=== PATIENT | female | born 1935 | race Caucasian/White ===

== ENCOUNTER 2018-04-02 15:46 | Emergency (ER) | payer MEDICARE, BC ==
--- OUTSIDE RECORDS SUMMARY | 2018-04-02 16:02 | XMS REPORT | Continuity of Care Document ---
:1935 External Reference #:[id number] Demographics Address [address] [place] [address] Home Phone [phone] Mobile Phone [phone] Preferred Language en Marital Status Not or Baptist Affiliation Unknown Race White Ethnic Group Not or Author Name Tonya Pettit Care Team Providers Name Role Phone Emiliano Andrew MD Care Team Information Loan Servicing Officer Unavailable Emiliano Andrew MD Primary Care Physician Unavailable Payers Type Date Identification Numbers Payment Provider Subscriber Policy Number: [id number] Medicare Melanie Mendez PayID: [id number] [address] [place] [address] Effective: 2012 Policy Number: [id number] [facility] Melanie Mendez Group Number: [id number] [address] [address] PayID: [id number] [place] [id number] Advance Directives Description No Information Available Problems Date Description Provider Status Onset: 11/20/2011 Impacted cerumen Jose Ford M.D. Active Onset: 11/20/2011 Deviated nasal septum Jose Ford M.D. Active Onset: 11/20/2011 Disorder of thyroid gland Jose Ford M.D. Active Family History Date Family Member(s) Problem(s) Comments General Diabetes Social History Type Date Description Comments Sex Unknown Tobacco Use Start: Unknown End: Unknown Former Cigarette Smoker ETOH Use Occasionally consumes alcohol Allergies, Adverse Reactions, Alerts Date Description Reaction Status Severity Comments 09/30/2008 Penicillins THROAT SWELLS Active 09/30/2008 Tetracycline THRUSH Active Medications Medication Date Status Form Strength Qnty SIG Indications Ordering Provider Fluticasone 11/20/ Active Suspension 50mcg/Act 3units 2 sprays Milton Ford 2011 both nakul Garcia M.D. every day Calcium & D 08/09/ Active Tablets Fadumo Ford M.D. Paxil / Active Tablets 20mg 1 tablet Unknown 0000 po prn Coumadin / Active Unknown 0000 Metoprolol / Active Tablets bid Unknown Tartrate 0000 Pantoprazole 00/00/ Active Tablets DR 40mg 30tabs 1 by Unknown Sodium 0000 mouth every day Calcitonin 00/00/ Active 200Units daily Unknown [place] 0000 Sucralfate 0000/ Active Tablets 1gm 1 by Unknown 0000 mouth three times daily Magnesium / Active Tablets 400mg twice a Unknown Oxide 0000 day Proventil HFA / Active Aerosol 108(90Base 2 unit by Unknown 0000 ) mcg/Act mouth every 4 hours as needed Mupirocin 05/14/ Hx Ointment 2% 1units apply Logan, 2016 - around Jose, 03/17/ the nose M.D. 2017 twice daily 2 weeks Fluocinolone 11/17/ Hx Oil 0.01% 3units 3-5 drops Ron Fordonide 2016 - twice Jose, 03/17/ daily or M.D. 2017 as needed affcted ear Prednisone 11/11/ Hx Tablets 10mg 3tabs 1 by Logan, 2015 - mouth Jose, 05/14/ every M.D. 2015 morning Fluocinolone 02/22/ Hx Oil 0.01% 3units 3-5 drops Ron Fordonide 2014 - twice Jose, 05/14/ daily or M.D. 2015 as needed affcted ear Singulair 09/26/ Hx Tablets 10mg 90tabs 1 po qd Logan, 2010 - Jose, 04/13/ M.D. 2013 Omnaris 10/12/ Hx Suspension 50mcg/Act 3units 2 sprays Logan, 2009 - both Jose, 11/17/ nostrils M.D. 2013 qd Vytorin / Hx Tablets 10-20mg Unknown - 2013 Prevacid /00/ Hx Capsules DR 30mg 30caps 1 po qd Unknown - 2013 Miacalcin 00/00/ Hx Unknown 0000 - 2009 Collette 00/00/ Hx Unknown - 2009 Collette-D 24 00/00/ Hx Tablets ER 180-240mg qday Unknown Hour 0000 - 24HR 2013 Iron 00/00/ Hx Tablets Unknown 0000 - 2013 Vitamin C 00/00/ Hx Tablets Unknown - 2013 Eye gtts // Hx instills Unknown 0000 - at hs 2013 Immunizations Description No Information Available Vital Signs Date Vital Result Comment 03/18/2018 1:40pm Weight 144.00 lb Height 64.5 inches 5'4.50" BMI (Body Mass Index) 24.3 kg/m2 BP Systolic 146 mmHg BP Diastolic 81 mmHg Heart Rate 64 /min O2 % BldC Oximetry 96 % Body Temperature 98.2 F Pain Level 0 10/18/2017 2:17pm Height 64.5 inches 5'4.50" BP Systolic 153 mmHg BP Diastolic 73 mmHg Heart Rate 72 /min O2 % BldC Oximetry 96 % Body Temperature 98.3 F Pain Level 4 10/17/2017 1:37pm Weight 151.00 lb Height 64.5 inches 5'4.50" BMI (Body Mass Index) 25.5 kg/m2 BP Systolic 144 mmHg BP Diastolic 84 mmHg Heart Rate 76 /min O2 % BldC Oximetry 97 % Body Temperature 98.2 F Pain Level 0 11/13/2016 11:42am Weight 151.00 lb Height 64.5 inches 5'4.50" BMI (Body Mass Index) 25.5 kg/m2 BP Systolic 166 mmHg BP Diastolic 81 mmHg Heart Rate 70 /min O2 % BldC Oximetry 96 % Body Temperature 97.4 F 05/15/2016 11:20am Weight 148.00 lb Height 64.5 inches 5'4.50" BMI (Body Mass Index) 25.0 kg/m2 BP Systolic 116 mmHg BP Diastolic 74 mmHg Heart Rate 74 /min O2 % BldC Oximetry 98 % Body Temperature 97.6 F 11/12/2015 11:36am Weight 150.00 lb Height 64.5 inches 5'4.50" BMI (Body Mass Index) 25.3 kg/m2 02/19/2015 2:03pm Weight 145.00 lb Height 64.5 inches 5'4.50" BMI (Body Mass Index) 24.5 kg/m2 BP Systolic 118 mmHg BP Diastolic 66 mmHg Heart Rate 68 /min O2 % BldC Oximetry 97 % Body Temperature 97.5 F Pain Level 0 04/29/2014 6:20pm Weight 149.00 lb Height 64.5 inches 5'4.50" BMI (Body Mass Index) 25.2 kg/m2 BP Systolic 128 mmHg BP Diastolic 76 mmHg Heart Rate 64 /min O2 % BldC Oximetry 98 % Body Temperature 98.6 F 04/14/2014 8:08am Weight 149.00 lb Height 64.5 inches 5'4.50" BMI (Body Mass Index) 25.2 kg/m2 BP Systolic 130 mmHg BP Diastolic 78 mmHg Heart Rate 66 /min O2 % BldC Oximetry 90 % Body Temperature 97.7 F Pain Level 0 11/17/2013 1:41pm Weight 140.00 lb Height 64.5 inches 5'4.50" BMI (Body Mass Index) 23.7 kg/m2 BP Systolic 112 mmHg BP Diastolic 82 mmHg Heart Rate 64 /min O2 % BldC Oximetry 97 % Body Temperature 99.3 F 11/21/2012 9:53am Weight 137.00 lb Height 64.5 inches 5'4.50" BMI (Body Mass Index) 23.2 kg/m2 BP Systolic 98 mmHg BP Diastolic 70 mmHg Heart Rate 63 /min O2 % BldC Oximetry 97 % Body Temperature 97.9 F 11/20/2011 3:39pm Weight 138.00 lb Height 64.5 inches 5'4.50" BMI (Body Mass Index) 23.3 kg/m2 BP Systolic 134 mmHg BP Diastolic 78 mmHg Heart Rate 81 /min O2 % BldC Oximetry 96 % Body Temperature 96.8 F 01/04/2011 9:28am Weight 137.00 lb Height 64.5 inches 5'4.50" BMI (Body Mass Index) 23.2 kg/m2 BP Systolic 116 mmHg BP Diastolic 82 mmHg Heart Rate 75 /min O2 % BldC Oximetry 96 % Body Temperature 97.1 F 08/09/2010 1:14pm Weight 143.00 lb Height 64.5 inches 5'4.50" BMI (Body Mass Index) 24.2 kg/m2 BP Systolic 130 mmHg BP Diastolic 80 mmHg Body Temperature 97.4 F 10/12/2009 2:56pm Weight 138.00 lb Height 64.5 inches 5'4.50" BMI (Body Mass Index) 23.3 kg/m2 BP Systolic 102 mmHg BP Diastolic 69 mmHg Heart Rate 78 /min Body Temperature 97.6 F 09/30/2008 1:55pm Weight 144.00 lb Height 65 inches 5'5" BMI (Body Mass Index) 24.0 kg/m2 BP Systolic 130 mmHg BP Diastolic 84 mmHg Body Temperature 97.8 F Results Test Date Facility Test Result H/L Range Note Laboratory test 10/17/2008 [facility] Pathology Exam (SEE NOTE) 1 finding [address] [place] [address] [phone] 1 NON-AUTOMOTIVE WINDOW TINTER PREPARATION TECHNIQUES CYTOLOGY NON-AUTOMOTIVE WINDOW TINTER SPECIMEN PREPARATION: CYTOLOGY PREPTECH SPECIMEN PREPARATION: 1 CENTRIFUGE TUBES 1 CYTOBUCKETS 1 CYTOSPIN SLIDE PREPARATIONS 1 THINPREP SLIDE PREPARATIONS 1 SLIDE PREPARATIONS SMEARS RECEIVED IN LAB ALREADY PREPARED: 6 PREPARED SMEARS A TOTAL OF 1 SLIDE PREPARATIONS WERE MADE ON THIS SPECIMEN. CYTOLOGY SCREENER Screened by: LUMA Smith([facility]) FINAL INTERPRETATION "MULTIPLE THYROID NODULES, FINE NEEDLE ASPIRATION BIOPSY": PAUCICELLULAR, HEMORRHAGIC, NONDIAGNOSTIC SPECIMEN (SEE COMMENT). INTERPRETATION COMMENT If the index mass persists or recurs, reaspiration or excisional biopsy with submission for surgical pathology evaluation may be considered. GROSS Received are 2 prepared smears in methanol, 4 stained prepared slides, and a 5ml red-top tube containing of fluid, including Cytospin Fluid; each is appropriately labeled. MH MICROSCOPIC Paucicellular specimen; abundant erythrocytes, dense colloid, foamy hisiocytes and siderophages. No follicular cell component identified. KAILASH Payne MD 10/21/08 Procedures Date Code Description Status 10/17/2017 11304 Ultrasound Head/Neck Completed 05/14/2017 59692 Ultrasound Head/Neck Completed 05/14/2017 94343 Remove Impacted Cerumen Completed 05/14/2017 37969 Fiberoptic Laryngoscopy,Diag. Completed 11/13/2016 69522 Ultrasound Head/Neck Completed 11/13/2016 05999 Remove Impacted Cerumen Completed 05/15/2016 70773 Ultrasound Head/Neck Completed 05/15/2016 27332 Remove Impacted Cerumen Completed 11/12/2015 51590 Fiberoptic Laryngoscopy,Diag. Completed 02/19/2015 73502 Remove Impacted Cerumen Completed 02/19/2015 82723 Ultrasound Head/Neck Completed 04/14/2014 62196 Remove Impacted Cerumen Completed 11/17/2013 69933 Fiberoptic Laryngoscopy,Diag. Completed 11/20/2011 52602 Ultrasound Head/Neck Completed 08/09/2010 91024 Nasal Endoscopy, Diag. Completed 10/12/2009 37674 Ultrasound Head/Neck Completed 10/17/2008 08324 Fna W/Image Completed 09/30/2008 92763 Acoustic Reflex Testing Completed 09/30/2008 10859 Tympanometry Completed 09/30/2008 18104 Audiometry, Comprehensive Completed Encounters Type Date Location Provider Dx Diagnosis Office Visit 10/18/2017 Main Office Jose Ford M.D. H60.92 Unspecified otitis 2:15p externa, left ear Office Visit 10/17/2017 Main Office Jose Ford M.D. K21.9 Gastro- esophageal 1:30p reflux disease without esophagitis E04.2 Nontoxic multinodular goiter H60.92 Unspecified otitis externa, left ear Office Visit 05/14/2017 9:30a Main Office Jose Ford H61.23 Impacted cerumemarylu MBessyDBessy bilateral K21.9 Gastro-esophageal reflux disease without esophagitis E04.2 Nontoxic multinodular goiter J31.0 Chronic rhinitis Office Visit 11/13/2016 11:30a Main Office Jose Ford H61.23 Impacted cerumen, M.DBessy bilateral K21.9 Gastro-esophageal reflux disease without esophagitis E04.2 Nontoxic multinodular goiter Office Visit 05/15/2016 11:15a Main Office Jose Ford H61.23 Impacted cerumen, MBessyDBessy bilateral K21.9 Gastro-esophageal reflux disease without esophagitis E04.2 Nontoxic multinodular goiter Office Visit 11/12/2015 11:30a Main Office Ford, Jose, H61.23 Impacted cergeraldnYudi bilateral K21.9 Gastro-esophageal reflux disease without esophagitis R07.0 Pain in throat E06.9 Thyroiditis, unspecified R49.0 Dysphonia Office Visit 02/19/2015 1:45p Main Office Jose Ford M.D. 380.4 Cerumen Removal 246.9 Thyroid Disorders Unspec 241.1 Goiter Nontoxic Multinodular Office Visit 04/29/2014 6:30p Main Office Jose Ford M.D. 380.4 Cerumen Removal 472.0 Rhinitis Chronic 784.91 Postnasal Drip Office Visit 11/17/2013 10:45a Main Office Jose Ford 246.9 Thyroid Disorders M.D. 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 Unspec 380.4 Cerumen Removal 470 Deviated Nasal Septum Office Visit 01/04/2011 9:15a Main Office Jose Ford M.D. 380.4 Cerumen Removal 470 Deviated Nasal Septum 472.0 Rhinitis Chronic Office Visit 08/23/2010 9:30a Main Office Jose Ford, 473.9 Sinusitis Chronic M.D. 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 Unspec 388.30 Tinnitus Unspecified 389.10 Hearing Loss Sensorineural Unspec Plan of Treatment Future Appointment(s):04/23/2018 1:15 pm - Jose Ford M.D. at Main [id number] - Linnette Coto, NP380.4 Cerumen Removal
[2018-04-02 17:21] VITALS: BP 148/89
--- NOTE | 2018-04-02 17:40 | UC ---
Throat Pain/Nasal Josué HPI - HPI Summary HPI Summary: 83-year-old woman here with a complaint of cough and sinus pressure. Symptoms started a little over a week ago. She's got rhinorrhea. She's been coughing up sputum. 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 She has frontal headache. The headache is worse with cough. Her chest hurts when she coughs but she does not have chest pain otherwise. She had some fevers earlier on this week. There is no edema no history of CHF. - History of Current Complaint Chief Complaint: UCGeneralIllness Stated Complaint: COUGH, HEADACHE Time Seen by Provider: 04/02/18 17:17 Pain Intensity: 5 - Allergies/Home Medications Allergies/Adverse Reactions: Allergies Allergy/AdvReac Type Severity Reaction Status Date / Time Penicillins Allergy Anaphylatic Verified 10/15/17 11:29 Shock tetracycline Allergy See Comment Verified 10/15/17 11:29 Home Medications: Home Medications Acetaminophen [Extra Strength Non-Aspirin] 1,000 mg PO Q6H PRN 04/02/18 [ History Confirmed 04/02/18] diphenhydrAMINE HCl [Zzzquil] 25 mg PO BEDTIME PRN 04/02/18 [History Confirmed 04/02/18] PMH/Surg Hx/FS Hx/Imm Hx Previously Healthy: No Other Cardiovascular History: NO CHF Respiratory History: COPD - Surgical History Surgical History: Yes Surgery Procedure, Year, and Place: lumpectomy left breast -benign. hysterectomy. hemorrhoidectomy. HIATALhernia repair. tumor removed from RUQ. RIGHT KNEE SCOPE - Family History Known Family History: Positive: Cardiac Disease, Hypertension - Social History Alcohol Use: Rare Substance Use Type: None Smoking Status (MU): Former Smoker When Did the Patient Quit Smoking/Using Tobacco: AT LEAST 10 YRS AGO Review of Systems Constitutional: Fever Skin: Negative Eyes: Negative ENT: Sore Throat, Nasal Discharge, Sinus Congestion, Sinus Pain/Tenderness Respiratory: Shortness Of Breath, Cough Cardiovascular: Negative, Chest Pain - WITH COUGH Gastrointestinal: Negative Motor: Negative Neurovascular: Negative Musculoskeletal: Negative Neurological: Negative Psychological: Negative Is Patient Immunocompromised?: No All Other Systems Reviewed And Are Negative: Yes Physical Exam Triage Information Reviewed: Yes Appearance: No Pain Distress, Well-Nourished, Ill-Appearing - MILD Vital Signs: Initial Vital Signs Temp 97.9 F 04/02/18 17:13 Pulse 72 04/02/18 17:13 Resp 20 04/02/18 17:13 BP 148/89 04/02/18 17:13 Pulse Ox 97 04/02/18 17:13 Vital Signs Reviewed: Yes Eyes: Positive: Conjunctiva Clear ENT: Positive: Pharyngeal erythema, Nasal congestion, Nasal drainage, Sinus tenderness Neck exam: Normal Neck: Positive: Supple Respiratory: Positive: Lungs clear, Normal breath sounds, No respiratory distress, No accessory muscle use, Other: - DRY COUGH Cardiovascular: Positive: RRR Musculoskeletal Exam: Normal Musculoskeletal: Positive: Strength Intact, ROM Intact, No Edema Neurological Exam: Normal Neurological: Positive: Alert Psychological Exam: Normal Skin Exam: Normal Throat Pain/Nasal Course/Dx - Course Course Of Treatment: We discussed getting a chest x-ray. At this time were not getting a chest x-ray because lungs are clear on exam and we plan on treating with antibiotic. Consider an x-ray if patient is getting worse or not improving. Plan is to follow up with her primary care doctor get a reevaluation sooner potentially the emergency department if worse. - Differential Dx/Diagnosis Provider Diagnoses: SINUSITIS. BRONCHITIS Discharge - Sign-Out/Discharge Documenting (check all that apply): Patient Departure All imaging exams completed and their final reports reviewed: No Studies - Discharge Plan Condition: Stable Disposition: HOME Prescriptions: Cefdinir [Cefdinir 300 MG CAP] 300 mg PO BID #20 capsule Patient Education Materials: Sinusitis (ED), Acute Bronchitis (ED) Referrals: Emiliano Andrew MD [Primary Care Provider] - Additional Instructions: FOLLOW UP WITH YOUR DOCTOR. GET RECHECKED FOR ANY WORSENING OF YOUR CONDITION OR QUESTIONS OR CONCERNS. - Billing Disposition and Condition Condition: STABLE Disposition: Home - Attestation Statements Document Initiated by Scribe: Telma
== END 2018-04-02 17:46 | disposition home or self-care (01) ==
LOC: UCCORT 15:46
DX: J32.9 Chronic sinusitis, unspecified (principal); J40 Bronchitis, not specified as acute or chronic; H54.8 Legal blindness, as defined in USA; J44.9 Chronic obstructive pulmonary disease, unspecified; Z87.891 Personal history of nicotine dependence; Z88.0 Allergy status to penicillin; Z88.1 Allergy status to other antibiotic agents
CPT/HCPCS: 99212; G0463